=== PATIENT | male | born 1965 | race African-American/Black ===

== ENCOUNTER 2018-07-02 14:15 | Emergency (ER) | payer MEDICAID ==
[~2018-07-02] VITALS: Ht 175.3 cm; Wt 86.0 kg
[2018-07-02] MEDS ORDERED: KETOROLAC 60MG/2ML VIAL IM STA (15:01)
[2018-07-02 15:07] LABS: CLARITY URINE CLEAR (CLEAR); COLOR URINE YELLOW (YELLOW); KETONES URINE NEGATIVE (NEGATIVE); LEUKOCYTE ESTERASE URINE NEGATIVE (NEGATIVE); NITRITE URINE NEGATIVE (NEGATIVE); OCCULT BLOOD URINE NEGATIVE (NEGATIVE); PROTEIN URINE NEGATIVE (NEGATIVE); SPECIFIC GRAVITY URINE 1.018 (1.005-1.030)
[2018-07-02 15:40] LABS: CHLORIDE 106 mEq/L (98-107)
[2018-07-02 15:42] LABS: BASOPHILS % 0.6 % (0.0-2.0); EOSINOPHILS % 1.2 % (0.0-5.0); HEMATOCRIT. 39.7 % (42.0-52.0); HEMOGLOBIN. 13.4 g/dL (14.0-18.0); LYMPHOCYTES % 34.9 % (20.0-50.0); MEAN CORPUSCULAR HEMOGLOBIN 30.7 pg (28.0-32.0); MEAN CORPUSCULAR VOLUME 90.7 fL (80.0-94.0); MEAN PLATELET VOLUME 9.9 fl (7.4-10.4); MONOCYTES % 9.7 % (2.0-8.0); NEUTROPHILS % 53.6 % (40.0-76.0); PLATELET 209 x1000/uL (130-400); RED BLOOD CELL COUNT 4.37 mill/uL (4.7-6.1); RED CELL DISTRIBUTION WIDTH 13.5 % (11.6-14.6)
[2018-07-02 16:32] VITALS: BP 158/95
== END 2018-07-02 16:49 | disposition home or self-care (01) ==
LOC: ER 14:15
DX: R10.31 Right lower quadrant pain (principal); E87.5 Hyperkalemia; F12.10 Cannabis abuse, uncomplicated; Z96.649 Presence of unspecified artificial hip joint
CPT/HCPCS: 36415; 74176; 80053; 81003; 83690; 85025; 96372; 99284; J1885; Z7610

== ENCOUNTER 2019-09-29 12:54 | Emergency (ER) | payer MEDICAID ==
[~2019-09-29] VITALS: Ht 180.3 cm; Wt 86.5 kg
[2019-09-29 14:36] VITALS: BP 134/80
== END 2019-09-29 14:38 | disposition home or self-care (01) ==
LOC: ER 12:54
DX: M67.461 Ganglion, right knee (principal); F12.10 Cannabis abuse, uncomplicated
CPT/HCPCS: 99281; 99283

== ENCOUNTER 2020-08-20 12:33 | Emergency (ER) | payer MEDICAID ==
[~2020-08-20] VITALS: Ht 180.3 cm; Wt 84.0 kg
[2020-08-20] MEDS ORDERED: KETOROLAC 60MG/2ML VIAL IM ONE (13:15)
[2020-08-20] MEDS ORDERED: AMOX-494 MT (13:16)
[2020-08-20] MEDS ORDERED: TRAM50TA3 MT (13:16)
[2020-08-20] MEDS ORDERED: CHLO473M2 MT (13:16)
[2020-08-20] MEDS ORDERED: IBUP-2030 MT (13:16)
[2020-08-20 14:02] VITALS: BP 161/93
== END 2020-08-20 14:13 | disposition home or self-care (01) ==
LOC: ER 13:49
DX: R68.84 Jaw pain (principal); F12.10 Cannabis abuse, uncomplicated; Z96.649 Presence of unspecified artificial hip joint; Z79.899 Other long term (current) drug therapy
CPT/HCPCS: 96372; 99283; J1885

== ENCOUNTER 2020-12-24 09:57 | Emergency (ER) | payer MEDICAID ==
[~2020-12-24] VITALS: Ht 180.3 cm; Wt 80.0 kg
[~2020-12-24 09:57] MED LIST: AMOX-494 MT; CHLO473M2 MT; IBUP-2030 MT; TRAM50TA3 MT
[2020-12-24] MEDS ORDERED: IBUPROFEN 600MG TABLET PO ONE (10:30)
[2020-12-24] MEDS ORDERED: ACETAMINOPHEN 325MG TABLET PO ONE (10:30)
[2020-12-24] MEDS ORDERED: NAPR-1176 MT (11:03)
[2020-12-24 11:07] VITALS: BP 139/89
== END 2020-12-24 11:07 | disposition home or self-care (01) ==
LOC: ER 09:57
DX: S93.491A Sprain of other ligament of right ankle, initial encounter (principal); M25.571 Pain in right ankle and joints of right foot; W55.89XA Other contact with other mammals, initial encounter; Y93.89 Activity, other specified; Y92.89 Other specified places as the place of occurrence of the external cause; Y99.8 Other external cause status; F12.10 Cannabis abuse, uncomplicated; Z79.899 Other long term (current) drug therapy
CPT/HCPCS: 29125; 73610; 99283

== ENCOUNTER 2021-12-30 14:14 | Emergency (ER) | payer MEDICAID ==
[~2021-12-30] VITALS: Ht 180.3 cm; Wt 83.0 kg
[~2021-12-30 14:14] MED LIST changes: +NAPR-1176 MT
[2021-12-30 14:20] VITALS: BP 123/81
[2021-12-30] MEDS ORDERED: IBUPROFEN 400MG TABLET PO ONE (15:45)
== END 2021-12-30 17:37 | disposition home or self-care (01) ==
LOC: ER 14:18
DX: M54.50 Low back pain, unspecified (principal); F12.10 Cannabis abuse, uncomplicated; Z79.899 Other long term (current) drug therapy
CPT/HCPCS: 99281

== ENCOUNTER 2022-10-18 18:41 | Emergency (ER) | payer MEDICAID ==
[~2022-10-18] VITALS: Ht 180.3 cm; Wt 82.0 kg
[2022-10-18 18:47] VITALS: BP 112/66; PULSE 119; RESP 18; TEMP 102; O2SAT 96
== END 2022-10-18 21:06 | disposition left against medical advice (07) ==
LOC: ER 19:35
DX: Z53.21 Procedure and treatment not carried out due to patient leaving prior to being seen by health care provider (principal)
CPT/HCPCS: 99281; 87426; C9803